=== PATIENT | female | born 1970 | race Two or more races ===

== ENCOUNTER 2016-11-14 12:15 | Emergency (ER) | payer SELFPAY ==
[~2016-11-14] VITALS: Ht 157.5 cm; Wt 77.0 kg
[2016-11-14] MEDS ORDERED: ACETAMINOPHEN 325 MG TABLET PO ONE (13:30)
[2016-11-14] MEDS ORDERED: ACETAMINOPHEN 325 MG TABLET ONE (14:55)
[2016-11-14 17:21] VITALS: BP 150/86
== END 2016-11-14 17:30 | disposition home or self-care (01) ==
LOC: EDBD 12:15 → ED 14:14
DX: R68.84 Jaw pain (principal); R55 Syncope and collapse; Y04.2XXA Assault by strike against or bumped into by another person, initial encounter
CPT/HCPCS: 70450; 70486